=== PATIENT | female | born 1985 | race African-American/Black ===

== ENCOUNTER 2016-07-15 17:34 | Emergency (ER) | payer SELFPAY ==
[~2016-07-15] VITALS: Ht 157.5 cm; Wt 101.4 kg
[~2016-07-15 17:34] MED LIST: AUGMENTIN XR 101 TER PO; CEPHALEXIN500 M1 PO; CLINDAMYCIN HC300 MG PO; DEPO PROVER150 MG/ML IM; LORTAB 5/500 501 TAB PO; MOTRIN 600600 MG/TAB PO; NAPROSYN500 MG PO; NO HOME MEDICATIONS; NORCO 325 MG-51 TAB PO; PEN-VK500 MG PO; PENICILLIN V500 MG PO; PERCOCET 325 MG1 TA2 PO; PHENERGAN W/CO120 ML PO; PREDNISONE10 MG PO; PRENATAL1 TA1 PO; PRENATAL1 TA3 PO; PROPYLTHIOURACI50 M1; PROVERA5 MG PO; TAPAZOLE10 MG PO; TESSALON P100 MG/CAP PO; THYROID MED; ZITHROMAX Z PA250 MG PO; ZOFRAN4 M1 PO
[2016-07-15 17:38] VITALS: BP 143/56; PULSE 83; TEMP 97
[2016-07-15] MEDS ORDERED: CEPHALEXIN500 M1 PO (18:50)
[2016-07-15] MEDS ORDERED: NORCO 325 MG-51 TAB PO (18:50)
== END 2016-07-15 19:02 | disposition home or self-care (01) ==
LOC: COL.ER 17:34
DX: K04.7 Periapical abscess without sinus (principal); K08.89 Other specified disorders of teeth and supporting structures; K03.81 Cracked tooth
CPT/HCPCS: J1885

== ENCOUNTER 2017-08-08 10:47 | Emergency (ER) | payer SELFPAY ==
[~2017-08-08] VITALS: Ht 157.5 cm; Wt 104.5 kg
[2017-08-08 11:03] VITALS: BP 136/84; PULSE 88; TEMP 98.5
[2017-08-08] MEDS ORDERED: AMOXICILLIN875 MG PO (12:39)
[2017-08-09] MEDS ORDERED: DEPO-PROVE150 MG/1 M IM (02:36)
== END 2017-08-08 12:46 | disposition home or self-care (01) ==
LOC: COL.ER 10:47
DX: H66.92 Otitis media, unspecified, left ear (principal); H61.22 Impacted cerumen, left ear; F17.210 Nicotine dependence, cigarettes, uncomplicated

== ENCOUNTER 2017-08-09 02:20 | Emergency (ER) | payer SELFPAY ==
[~2017-08-09] VITALS: Ht 157.5 cm; Wt 104.5 kg
[~2017-08-09 02:20] MED LIST changes: +AMOXICILLIN875 MG PO
[2017-08-09 02:33] VITALS: BP 126/63; TEMP 98.4
[2017-08-09] MEDS ORDERED: DEPO-PROVE150 MG/1 M IM (02:36)
[2017-08-09 04:24] VITALS: PULSE 82
== END 2017-08-09 04:25 | disposition home or self-care (01) ==
LOC: COL.ER 02:20
DX: H66.92 Otitis media, unspecified, left ear (principal); H61.22 Impacted cerumen, left ear

== ENCOUNTER 2019-09-21 12:23 | Emergency (ER) | payer MEDICAID ==
[~2019-09-21] VITALS: Ht 160 cm; Wt 104.5 kg
[~2019-09-21 12:23] MED LIST changes: +DEPO-PROVE150 MG/1 M IM; +FLEXERIL 1010 MG/TAB PO; +MEDROL 4MG DOSPA4 MG PO
[2019-09-21 12:31] VITALS: TEMP 97.7
[2019-09-21 13:31] LABS: COLLECTION METHOD CLEAN CATCH
[2019-09-21] MEDS ORDERED: FLEXERIL 1010 MG/TAB PO (13:41)
[2019-09-21] MEDS ORDERED: NAPROSYN500 MG PO (13:41)
[2019-09-21 13:42] LABS: MUCOUS Present /lpf; PH 7 (5-8); URINE APPEARANCE Hazy; URINE BACTERIA Rare /hpf; URINE BILIRUBIN Negative (NEGATIVE); URINE BLOOD Negative (NEGATIVE); URINE COLOR Yellow; URINE GLUCOSE Negative (NEGATIVE); URINE KETONE Negative (NEGATIVE); URINE LEUKOCYTE ESTERASE Trace (NEGATIVE); URINE NITRATE Negative (NEGATIVE); URINE PROTEIN(semi-quant) Negative (NEGATIVE); URINE RBC 0-2 /hpf
[2019-09-21 14:10] VITALS: BP 136/82; PULSE 86
== END 2019-09-21 14:14 | disposition home or self-care (01) ==
LOC: COL.ER 12:23
PROVIDERS: Nurse Practitioner Primary Care
DX: M54.5 Low back pain (principal); F17.210 Nicotine dependence, cigarettes, uncomplicated; Z90.89 Acquired absence of other organs
CPT/HCPCS: J1885

== ENCOUNTER → 2019-10-17 | Outpatient (CLI) | payer MEDICAID ==
[~2019-10-17] VITALS: Ht 160 cm; Wt 106.1 kg
[2019-10-17 13:42] VITALS: BP 132/90; PULSE 105
[2019-10-17 14:42] VITALS: BP 146/92; PULSE 75
== END ==
LOC: COL.RAD 13:15
DX: E07.89 Other specified disorders of thyroid (principal)

== ENCOUNTER → 2019-12-11 | Outpatient (CLI) | payer OTHER | LOC: COL.RAD 11:33 | DX: M54.9 Dorsalgia, unspecified (principal) ==

== ENCOUNTER 2019-12-27 10:20 | Emergency (ER) | payer MEDICAID ==
[~2019-12-27] VITALS: Ht 160 cm; Wt 105.5 kg
[2019-12-27 10:33] VITALS: BP 127/95; PULSE 82; TEMP 98.8
[2019-12-27 11:41] LABS: COLLECTION METHOD CLEAN CATCH
[2019-12-27 11:54] LABS: MUCOUS Present /lpf; PH 5 (5-8); URINE APPEARANCE Hazy; URINE BACTERIA Rare /hpf; URINE BILIRUBIN Negative (NEGATIVE); URINE BLOOD Negative (NEGATIVE); URINE COLOR Yellow; URINE GLUCOSE Negative (NEGATIVE); URINE KETONE Negative (NEGATIVE); URINE LEUKOCYTE ESTERASE Negative (NEGATIVE); URINE NITRATE Negative (NEGATIVE); URINE PROTEIN(semi-quant) Negative (NEGATIVE); URINE RBC 0-2 /hpf
[2019-12-27] MEDS ORDERED: NAPROSYN500 MG PO (12:10)
[2019-12-27] MEDS ORDERED: FLEXERIL 1010 MG/TAB PO (12:10)
== END 2019-12-27 12:29 | disposition home or self-care (01) ==
LOC: COL.ER 10:20
PROVIDERS: Nurse Practitioner Primary Care
DX: M54.5 Low back pain (principal); G89.29 Other chronic pain; F17.210 Nicotine dependence, cigarettes, uncomplicated; Z90.89 Acquired absence of other organs
CPT/HCPCS: J1885

== ENCOUNTER → 2020-01-05 | Outpatient (CLI) | payer MEDICAID | LOC: COL.RAD 12:43 | DX: M51.36 Other intervertebral disc degeneration, lumbar region (principal) ==

== ENCOUNTER → 2020-08-03 | Outpatient (CLI) | payer MEDICAID ==
[~2020-08-03] MED LIST changes: +CYMBALTA 60MG60 MG PO; +MAG-OX 400400 MG/TAB PO; +MOBIC15 MG PO; +NEURONTIN800 MG/TAB PO; +ROBAXIN 50500 MG/TAB PO; +ZANAFLEX CAPSULE2 MG PO
== END ==
LOC: COL.RAD 14:00
DX: M48.02 Spinal stenosis, cervical region (principal); M50.21 Other cervical disc displacement, high cervical region; E04.2 Nontoxic multinodular goiter

== ENCOUNTER → 2020-08-26 | Outpatient (CLI) | payer MEDICAID | LOC: COL.RAD 11:31 | DX: E04.1 Nontoxic single thyroid nodule (principal) | CPT/HCPCS: A9516 ==

== ENCOUNTER 2020-10-29 15:42 | Emergency (ER) | payer MEDICAID ==
[~2020-10-29] VITALS: Ht 160 cm; Wt 106.4 kg
[~2020-10-29 15:42] MED LIST changes: -CYMBALTA 60MG60 MG PO; -MAG-OX 400400 MG/TAB PO; -MOBIC15 MG PO; -NEURONTIN800 MG/TAB PO; -ROBAXIN 50500 MG/TAB PO; -ZANAFLEX CAPSULE2 MG PO
[2020-10-29 16:12] VITALS: BP 127/83; PULSE 101; TEMP 98.5
[2020-12-13] MEDS ORDERED: NEURONTIN800 MG/TAB PO (12:28)
[2020-12-13] MEDS ORDERED: MOBIC15 MG PO (12:29)
[2020-12-13] MEDS ORDERED: ZANAFLEX CAPSULE2 MG PO (12:30)
[2020-12-13] MEDS ORDERED: CYMBALTA 60MG60 MG PO (12:30)
[2020-12-13] MEDS ORDERED: MAG-OX 400400 MG/TAB PO (12:31)
[2020-12-13] MEDS ORDERED: ROBAXIN 50500 MG/TAB PO (12:32)
== END 2020-10-29 16:15 | disposition home or self-care (01) ==
LOC: COL.ER 15:42
DX: L25.9 Unspecified contact dermatitis, unspecified cause (principal); F17.210 Nicotine dependence, cigarettes, uncomplicated; Z98.890 Other specified postprocedural states

== ENCOUNTER 2020-12-16 12:24 | Outpatient (CLI) | payer MEDICAID ==
[~2020-12-16] VITALS: Ht 160 cm; Wt 108.4 kg
[~2020-12-16 12:24] MED LIST changes: +CYMBALTA 60MG60 MG PO; +MAG-OX 400400 MG/TAB PO; +MOBIC15 MG PO; +NEURONTIN800 MG/TAB PO; +ROBAXIN 50500 MG/TAB PO; +ZANAFLEX CAPSULE2 MG PO
[2020-12-16 13:07] VITALS: BP 132/84; PULSE 100
[2020-12-16 14:00] VITALS: BP 142/87; PULSE 73
--- NOTE | 2020-12-16 14:00 | NUR ---
Report from Allyssa LEONE. Transferred from Radiology by cart. Band aid to middle low back CD&I. Pt denies pain and needs at this time
[2020-12-16 14:15] VITALS: BP 140/90; PULSE 68
[2020-12-16 14:30] VITALS: BP 127/85; PULSE 70
[2020-12-16 14:45] VITALS: BP 131/87; PULSE 76
[2020-12-16 14:49] LABS: GLUCOSE,CSF 54 mg/dL (40-70); TOTAL PROTEIN,CSF 34 mg/dL (15-45)
[2020-12-16 15:00] VITALS: BP 138/85; PULSE 71
--- NOTE | 2020-12-16 15:05 | NUR ---
Discharge instructions given. Transferred to private car by donald
[2020-12-16 16:33] LABS: CSF APPEARANCE CLEAR; CSF COLOR COLORLESS; CSF RBC 758 /mm3 (0-0)
[2020-12-16 16:34] LABS: CSF MONONUCLEAR 50 % (70-100); CSF POLYMORPHONUCLEAR 50 % (0-6)
== END 2020-12-16 15:05 | disposition home or self-care (01) ==
LOC: COL.RAD 12:24
PROVIDERS: Psychiatry & Neurology Neurology
DX: R51.9 Headache, unspecified (principal); G89.29 Other chronic pain; R79.89 Other specified abnormal findings of blood chemistry; E23.6 Other disorders of pituitary gland

== ENCOUNTER → 2023-03-09 | Outpatient (CLI) | payer MEDICARE, MEDICAID | LOC: COL.RAD 13:36 | DX: G93.89 Other specified disorders of brain (principal); M47.812 Spondylosis without myelopathy or radiculopathy, cervical region; M50.31 Other cervical disc degeneration, high cervical region; M50.223 Other cervical disc displacement at C6-C7 level; M48.02 Spinal stenosis, cervical region; E04.2 Nontoxic multinodular goiter | CPT/HCPCS: A9575 ==